=== PATIENT | male | born 1980 | race Caucasian/White ===

== ENCOUNTER 2016-09-26 08:45 | Emergency (ER) | payer SELFPAY ==
--- NOTE | 2016-09-26 16:07 | UC ---
Andrea Pacheco [place], scribed for Tammi Larios MD on 09/26/16 at 0938 . Eye Complaint HPI - HPI Summary HPI Summary: Patient is a 36 y/o male who presents to the with a red eye and discharge from the right eye since 0400 today. He states he woke up this morning and struggled to open his right eyes. Once he washed his eyes, he noticed erythema. Pt reports having a cold this past week and wiping his wiping his eyes after a coughing fit. He states vision is unchanged and he took Dayquil this morning. No hx glaucoma or other eye problems. Has [facility]. Does not wear contacts. - History of Current Complaint Chief Complaint: UCEye Stated Complaint: EYE ISSUE Time Seen by Provider: 09/26/16 09:22 Hx Obtained From: Patient Onset/Duration: Gradual Onset, Lasting Hours, Still Present Timing: Constant Severity Initially: Moderate Severity Currently: Moderate Pain Intensity: 0 Pain Scale Used: 0-10 Numeric Location of Injury: Conjunctiva - no injury, redness Character: Dull Aggravating Factor(s): Nothing Alleviating Factor(s): Nothing Associated Signs And Symptoms: Positive: Drainage (Clear). Negative: Vision Impairment Right, Vision Impairment Left - Risk Factors Penetrating Injury Risk Factor: Negative Globe Rupture Risk Factors: Negative Acute Glaucoma Risk Factors: Negative Optic Artery Occlusion Risk Factors: Negative - Allergies/Home Medications Allergies/Adverse Reactions: Allergies Allergy/AdvReac Type Severity Reaction Status Date / Time No Known Allergies Allergy Verified 09/26/16 09:05 PMH/Surg Hx/FS Hx/Imm Hx Previously Healthy: Yes - Surgical History Surgical History: Yes Surgery Procedure, Year, and Place: wrist. ACL repair - Family History Known Family History: Positive: Hypertension - Mother., Diabetes - Mother., Other - No FHx of glaucoma. - Social History Occupation: Employed Full-time Alcohol Use: Occasionally Substance Use Type: None Smoking Status (MU): Never Smoked Tobacco Review of Systems Constitutional: Negative Eyes: Drainage - Right., Eye Redness - Right. All Other Systems Reviewed And Are Negative: Yes Physical Exam Triage Information Reviewed: Yes Appearance: No Pain Distress, Ill-Appearing, Obese Vital Signs: Initial Vital Signs Temp 98 F 09/26/16 09:01 Pulse 79 09/26/16 09:01 Resp 20 09/26/16 09:01 BP 142/88 09/26/16 09:01 Pulse Ox 97 09/26/16 09:01 Elevated blood pressure noted: 142/88. Vital Signs Reviewed: Yes Eyes: Positive: Conjunctiva Inflamed, Other: - Conjunctiva inflamed. PERRL. EOMI. Exudates on upper and lower lashes. ENT: Positive: Hearing grossly normal. Negative: Muffled/hoarse voice Neck: Positive: Supple Respiratory: Positive: Lungs clear, Normal breath sounds, No respiratory distress Cardiovascular: Positive: RRR, No Murmur, Pulses Normal, Brisk Capillary Refill Musculoskeletal: Positive: Strength Intact, ROM Intact Neurological: Positive: Alert, Muscle Tone Normal Psychological Exam: Normal Skin Exam: Normal Eye Complaint Course/Dx - Differential Dx/Diagnosis Differential Diagnosis/HQI/PQRI: Conjunctivitis, Corneal Abrasion, Glaucoma Provider Diagnoses: acute conjunctivitis. elevated BP without dx HTN Discharge - Discharge Plan Condition: Stable Disposition: HOME Prescriptions: Tobramycin 0.3% OPHTH.THERESA* 2 drop RIGHT EYE Q4H #1 btl Patient Education Materials: Conjunctivitis (ED) Forms: *Work Release Referrals: [facility] [place] [place] [facility] [Outside] - As Soon As Possible (within one month for elevated blood pressure ) Raphael Falcon MD [Medical Doctor] - If Needed Additional Instructions: RETURN TO URGENT CARE FOR ANY NEW OR WORSENING SYMPTOMS The documentation as recorded by the Andrea duke Salem accurately reflects the service I personally performed and the decisions made by , Tammi Larios MD.
== END 2016-09-26 09:45 | disposition home or self-care (01) ==
LOC: UCEAST 08:45
DX: H10.31 Unspecified acute conjunctivitis, right eye (principal); R03.0 Elevated blood-pressure reading, without diagnosis of hypertension
CPT/HCPCS: 99202; G0463

== ENCOUNTER 2019-01-31 09:41 | Emergency (ER) | payer OTHER ==
--- NOTE | 2019-01-31 09:56 | UC ---
Ear Complaint HPI - HPI Summary HPI Summary: 38 yo male with left otalgia x 4 days used qtip now markedly decreased hearing hurts to chew EAC swollen - History of Current Complaint Chief Complaint: UCEar Stated Complaint: L EAR PAIN Time Seen by Provider: 01/31/19 09:49 Hx Obtained From: Patient Onset/Duration: Gradual Onset, Lasting Days Severity Initially: Mild Severity Currently: Mild Pain Intensity: 2 Pain Scale Used: 0-10 Numeric Aggravating Factors: Other - chewing Alleviating Factors: Nothing Associated Signs/Symptoms: Positive: Hearing Loss - Allergies/Home Medications Allergies/Adverse Reactions: Allergies Allergy/AdvReac Type Severity Reaction Status Date / Time No Known Allergies Allergy Verified 01/31/19 09:53 Home Medications: Home Medications Acetaminophen/Diphenhydramine [Tylenol Pm Ex-Strength Caplet] 1 each PO BEDTIME PRN 01/31/19 [History Confirmed 01/31/19] Ibuprofen TAB* [Advil TAB*] 800 mg PO ONCE PRN 01/31/19 [History Confirmed 01/31] PMH/Surg Hx/FS Hx/Imm Hx Previously Healthy: Yes - Surgical History Surgical History: Yes Surgery Procedure, Year, and Place: wrist. ACL repair - Family History Known Family History: Positive: Hypertension - Mother., Diabetes - Mother., Other - No FHx of glaucoma. - Social History Alcohol Use: Rare Substance Use Type: None Smoking Status (MU): Never Smoked Tobacco Review of Systems All Other Systems Reviewed And Are Negative: Yes Constitutional: Positive: Negative Skin: Positive: Negative Eyes: Positive: Negative ENT: Positive: Ear Ache - Left, Other - decreased hearing Respiratory: Positive: Negative Cardiovascular: Positive: Negative Gastrointestinal: Positive: Negative Genitourinary: Positive: Negative Motor: Positive: Negative Neurovascular: Positive: Negative Musculoskeletal: Positive: Negative Neurological: Positive: Negative Psychological: Positive: Negative Physical Exam Triage Information Reviewed: Yes Appearance: Well-Appearing, No Pain Distress Vital Signs: Initial Vital Signs Temp 97 F 01/31/19 09:50 Pulse 89 01/31/19 09:50 Resp 18 01/31/19 09:50 BP 140/81 01/31/19 09:50 Pulse Ox 99 01/31/19 09:50 Vital Signs Reviewed: Yes Eyes: Positive: Conjunctiva Clear ENT: Positive: Hearing grossly normal. Negative: Nasal congestion, Nasal drainage, Trismus, Muffled voice, Hoarse voice Neck: Positive: Supple, Nontender, No Lymphadenopathy Respiratory: Positive: Lungs clear, Normal breath sounds, No respiratory distress Cardiovascular: Positive: RRR, No Murmur Musculoskeletal: Positive: ROM Intact, No Edema Neurological: Positive: Alert Psychological Exam: Normal Skin Exam: Normal Ear Complaint Course/Dx - Course Course Of Treatment: crum ear wick inserted by me pt advised that at follow up he would need to hve wick removed - Differential Dx/Diagnosis Provider Diagnosis: Left otitis externa, Elevated BP without diagnosis of hypertension Discharge - Sign-Out/Discharge Documenting (check all that apply): Patient Departure All imaging exams completed and their final reports reviewed: No Studies - Discharge Plan Condition: Stable Disposition: HOME Patient Education Materials: Otitis Externa (ED) Referrals: [facility] [Outside] - 1 Week - Billing Disposition and Condition Condition: STABLE Disposition: Home
[2019-01-31] MEDS ORDERED: Neomyc/Polym/HC 1% OTIC SUSP* **OTIC LEFT EAR ONE (10:03)
== END 2019-01-31 10:15 | disposition home or self-care (01) ==
LOC: UCEAST 09:41
DX: H60.92 Unspecified otitis externa, left ear (principal); R03.0 Elevated blood-pressure reading, without diagnosis of hypertension
CPT/HCPCS: 99212; A9270-GY; G0463